=== PATIENT | female | born 1980 | race Two or more races ===

== ENCOUNTER 2025-01-31 11:59 | Emergency (ER) | payer MEDICAID, SELFPAY ==
[2025-01-31 13:11] VITALS: BP 119/83; PULSE 56; RESP 16; TEMP 36.6; O2SAT 100
--- NOTE | 2025-01-31 13:20 | XR_ITS ---
Examination: Pelvic ultrasound, transabdominal, complete Technique: Transabdominal ultrasound of the pelvis performed using grayscale imaging Date and time of exam: January 31, 2025 1536 hrs. 1-worse today Findings: 34 absent uterus Suspicious for cervical mass 2.9 x 1.6 x 2.8 cm Right ovary 3.6 cm arterial flow small follicles, the largest 20 mm Left ovary 2.8 cm arterial flow small follicles, including 21 mm cyst versus dilated left ovarian tube Impression: Suspicious for mass in the cervix 2.9 x 1.6 x 2.8 cm, recommend MRI pelvis follow-up pre and postcontrast
--- NOTE | 2025-01-31 13:20 | XR_ITS ---
Examination: Abdomen sonogram, complete Date and time of exam: January 31, 2025 1515 hrs. Indication: Worsening abdominal pain today. Technique: Multiple real-time grayscale transabdominal sonographic images of the abdomen have been obtained. Findings: Normal gallbladder. Normal common bile duct 0.3 cm. Pancreatic head 2.2 cm Aorta not enlarged. Liver normal size smooth contour Normal hepatopedal portal venous flow. Patent IVC. Right kidney 10.9 renal cortex 1.2 cm Left kidney 11.6 cm renal cortex 1.9 cm Mild bilateral renal parenchymal scar formation Spleen 10.1 cm Impression: Normal gallbladder Liver normal size no focal liver lesions Mild bilateral renal parenchymal scar formation
--- NOTE | 2025-01-31 13:24 | EDNOTE_ITS ---
ED Abdominal Pain RME/HPI General Chief Complaint: Abdominal Pain Stated complaint: ABD PAIN X SEVERAL WEAKS Time seen by provider: 01/31/25 14:51 Arrival date/time: 01/31/25 11:59 Limitations: no limitations RME / HPI RME / HPI narrative: 44-year-old female presents with a 1 month history of abdominal pain with bloating. It became worse today. She states it is constant in nature with no association to food. She denies nausea or vomiting, diarrhea or constipation, fever or chills. I have greeted and performed a focused initial assessment of this patient. A comprehensive ED assessment and evaluation of the patient, analysis of all test results, and completion of the medical decision making process will be conducted by additional ED providers. Related Data Home Medications ?Medication ?Instructions ?Recorded ?Confirmed hydroxyzine HCl 50 mg tablet 1 tab PO DAILY 05/03/22 0 05/21/24 quetiapine 25 mg tablet 1 tab PO DAILY 05/03/2204/29 Previous Rx's ?Medication ?Instructions ?Recorded ondansetron HCl 4 mg tablet 4 mg PO TID #30 tabs 05/17 dicyclomine 20 mg tablet 20 mg PO BID PRN pain #30 ta bs 10/13/22 dicyclomine 20 mg tablet 20 mg PO TID PRN abdominal p ain 05/24/24 #10 tabs Allergies Allergy/AdvReac Type Severity Reaction Status Date / Time No Known Allergies Allergy Verified 01/31/25 12:01 Review of Systems Review of Systems Systems Reviewed: All systems reviewed, normal except as documented Past Medical History Past Medical History NEUROLOGIC: Positive Neurological Disorders and Migraine; Negative Seizures CARDIAC: Negative Cardiac Disorders, Congestive Heart Failure, Edema or Cellulitis RESPIRATORY: Negative Chronic Obstructive Pulmonary Disease (COPD), Asthma, Pulmonary Fibrosis, Tuberculosis or Sleep Apnea GASTROINTESTINAL: Negative Gastrointestinal Disorders or Hepatitis GENITOURINARY: Negative Genitourinary Disorders or Renal Disease REPRODUCTIVE: Positive Previous Pregnancies MUSCULOSKELETAL: Negative Musculoskeletal Disorders ENDOCRINE: Negative Endocrine Disorders, Diabetes Mellitus Type 1 or Diabetes Mellitus Type 2 HEMATOLOGIC: Negative Blood Disorders or Sickle Cell Disease PSYCHO/SOCIAL: Positive Depression and Anxiety OTHER HISTORY: Positive Chicken Pox, Measles and Mumps; Negative Hospitalization, Autoimmune Disease, Shingles, Falls, Blood Transfusions, Blood Transfusion Reaction, Anesthesia Reactions, Chemotherapy, Radiation Therapy, MRSA or Cancer Family History FAMILY HISTORY: Positive Family Psychiatric Problems, Family Cancer (PT'S GRANDPA BRAIN CANCER) and Family Surgery; Negative Family Respiratory Disorders, Family Cardiac Disorders, Family Gastrointestinal Problems or Family Anesthesia Reaction Surgical History SURGICAL: Positive Lumpectomy; Negative Pacemaker Social History SMOKING STATUS: Never smoker ED Exam General Limitations: Present no limitations General appearance: Present alert Head Head exam: Present atraumatic and normal inspection Eye Eye exam: Present normal appearance; Absent scleral icterus or conjunctival injection ENT ENT exam: Present normal exam Neck Neck exam: Present normal inspection Chest Chest inspection: Present normal inspection Respiratory Respiratory exam: Absent respiratory distress Cardiovascular Cardiovascular exam: Present regular rate and normal rhythm Abdominal Exam Abdominal exam: Present soft and tenderness (R&L pelvic region); Absent distention Extremities Exam Extremities exam: Present normal inspection Back Exam Back exam: Present full ROM Neurological Exam Neurological exam: Present alert and oriented X3 Psychiatric Psychiatric exam: Present normal affect and normal mood Skin Skin exam: Present warm, dry, intact and normal color Course Course Course Narrative: 44-year-old female presents with a 1 month history of abdominal pain with bloating. It became worse today. She states it is constant in nature with no association to food. She denies nausea or vomiting, diarrhea or constipation, fever or chills. Alert and oriented, no acute distress, lungs are clear, regular rate and rhythm. Abdomen is soft with mild right and left pelvic tenderness. No rebound or guarding. Labs reveal normal white count, normal H&H and platelets. Comprehensive metabolic panel is normal. Urinalysis is negative for infection or blood. Pelvic US: Findings: absent uterus. Suspicious for cervical mass 2.9 x 1.6 x 2.8 cm. Right ovary 3.6 cm arterial flow small follicles, the largest 20 mm. Left ovary 2.8 cm arterial flow small follicles, including 21 mm cyst versus dilated left ovarian tube. Impression: Suspicious for mass in the cervix 2.9 x 1.6 x 2.8 cm, recommend MRI pelvis follow-up pre and postcontrast Abdominal US: Impression: Normal gallbladder. Liver normal size no focal liver lesions. Mild bilateral renal parenchymal scar formation. Quality Measures none Orders Category Date Time Status NPO STAT Care 01/31/25 13:19 Completed US abdomen Stat Exams 01/31/25 13:20 Completed US pelvic complete Stat Exams 01/31/25 13:20 Completed Amylase Stat Lab 01/31/25 14:20 Completed CBC Stat Lab 01/31/25 14:20 Completed Comprehensive Metabolic Panel Stat Lab 01/31/25 14:20 Completed HCG Qualitative,Urine Stat Lab 01/31/25 13:25 Completed Lipase Stat Lab 01/31/25 14:20 Completed Urinalysis Stat Lab 01/31/25 13:25 Completed Vital Signs Vital signs: Vital Signs Temperature 97.9 F 01/31/25 13:11 Pulse Rate 56 L 01/31/25 13:11 Respiratory Rate 16 01/31/25 13:11 Blood Pressure 119/83 01/31/25 13:11 Pulse Oximetry (%) 100 01/31/25 13:11 Oxygen Delivery Method Room Air 01/31/25 13:11 Abdominal Pain MDM MDM Narrative MDM Narrative:: 44-year-old female presents with a 1 month history of abdominal pain with bloating. It became worse today. She states it is constant in nature with no association to food. She denies nausea or vomiting, diarrhea or constipation, fever or chills. Alert and oriented, no acute distress, lungs are clear, regular rate and rhythm. Abdomen is soft with mild right and left pelvic tenderness. No rebound or guarding. Labs reveal normal white count, normal H&H and platelets. Comprehensive metabol ic panel is normal. Urinalysis is negative for infection or blood. Pelvic US: Findings: absent uterus. Suspicious for cervical mass 2.9 x 1.6 x 2.8 cm. Right ovary 3.6 cm arterial flow small follicles, the largest 20 mm. Left ovary 2.8 cm arterial flow small follicles, including 21 mm cyst versus dilated left ovarian tube. Impression: Suspicious for mass in the cervix 2.9 x 1.6 x 2.8 cm, recommend MRI pelvis follow-up pre and postcontrast Abdominal US: Impression: Normal gallbladder. Liver normal size no focal liver lesions. Mild bilateral renal parenchymal scar formation. Patient data External records reviewed:: None Clinical information provided by:: patient Social determinants that could affect healthcare access:: none Patient has the following chronic illnesses:: N/A How is presenting disease/condition affected by chronic disease/condition?: no chronic disease Evaluation data The following diagnostics were reviewed and interpreted by me:: lab results and radiology exam(s) Lab and/or radiology exams considered but not ordered:: N/A Interpretation Summary: Labs reveal normal white count, normal H&H and platelets. Comprehensive metabolic panel is normal. Urinalysis is negative for infection or blood. Pelvic US: Findings: absent uterus. Suspicious for cervical mass 2.9 x 1.6 x 2.8 cm. Right ovary 3.6 cm arterial flow small follicles, the largest 20 mm. Left ovary 2.8 cm arterial flow small follicles, including 21 mm cyst versus dilated left ovarian tube. Impression: Suspicious for mass in the cervix 2.9 x 1.6 x 2.8 cm, recommend MRI pelvis follow-up pre and postcontrast Abdominal US: Impression: Normal gallbladder. Liver normal size no focal liver lesions. Mild bilateral renal parenchymal scar formation. Medications / Prescriptions Medications or Prescriptions considered but not ordered:: N/A Medication administrations:: N/A Consultations Consultation(s) initiated? (list below): Yes Consultation #1 (Physician, Specialty, Details): Dr. Lui, [employer] [facility] at [facility]. Results of ultrasound discussed with Dr. Lui. She will order MRI. She has agreed to see the patient in the clinic. Diagnosis Differential diagnosis abdominal pain: abdominal pain, endometriosis and other (Cervical mass, ovarian mass, appendicitis, cystitis.) Most likely diagnosis given after review of the tests above:: Cervical mass Admission Indicated Admission indicated?: not indicated Explain why admission is indicated or not indicated:: Patient is stable for discharge Admission Request Was there a request for admission?: No Disposition Plan Disposition Plan: Discharge Discharge Attestation Discharge Attestation: The patient and all family members were given an opportunity to ask questions and understood the discharge instructions. Discharge instructions specifically effects, indications for sooner follow up or return to the emergency department, and the expected course of current diagnosis. Patient condition: Stable Discharge Plan Plan Patient Disposition: HOME (Self Care) Discharge Disposition comment: Stable Prescriptions/Referrals Prescriptions/Med Rec: No Action quetiapine 25 mg tablet 1 tab PO DAILY hydroxyzine HCl 50 mg tablet 1 tab PO DAILY Patient Comments: TOME ROHAN TABLETA POR V A ORAL TODOS LOS D CUANDO SEA NECESARIO ondansetron HCl 4 mg tablet 4 mg PO TID Qty: 30 0RF dicyclomine 20 mg tablet 20 mg PO BID PRN (Reason: pain) Qty: 30 0RF dicyclomine 20 mg tablet 20 mg PO TID PRN (Reason: abdominal pain) Qty: 10 0RF Referrals: Earle Oliveros MD [Primary Care Provider] - In 1 week Soumya Lui MD [Physician] - In 1 week Problem List Clinical Impression: Cervical mass Patient/Caregiver Discharge Instructions Additional Instructions: Follow-up with your primary care physician in 24 to 48 hours. Return to the ED for any new or worsening symptoms. Print Language: Kazakh Stand Alone Forms: Tami Award Info., Patient Portal Info Letter PA/[employer]OV[employer] W[employer]ER Supervising Physician PA/[employer] WINDER Supervising Physician: Dr. Zepeda
[2025-01-31 14:29] LABS: Collection Type, Urine Clean Catch
[2025-01-31 14:30] LABS: Basophils # (Auto) 0.1 Thou/mm3 (0.0-0.2); Basophils % (Auto) 1 % (0-2.5); Eosinophils # (Auto) 0.2 Thou/mm3 (0.0-0.5); Eosinophils % (Auto) 3 % (0-10); Hematocrit 39.1 % (36.0-46.0); Hemoglobin 13.5 g/dL (12.0-16.0); Immature Granulocytes % (Auto) 0 % (0-0); Immature Granulocytes Auto 0.02 Thou/mm3 (0.00-0.00); Lymphocytes # (Auto) 2.6 Thou/mm3 (1.0-4.8); Lymphocytes % (Auto) 36 % (10-50); Mean Corpuscular HGB Conc 34.5 g/dl (31.0-37.0); Mean Corpuscular Hemoglobin 31.4 pg (25.0-35.0); Mean Corpuscular Volume 91 fL (80-100); Monocytes # (Auto) 0.4 Thou/mm3 (0.0-0.8); Monocytes % (Auto) 6 % (0-12); Neutrophils % (Auto) 55 % (37-80); Nucleated Red Blood Cell % 0 /100 WBC (0); Platelet Count 327 Thou/mm3 (140-440); RDW Standard Deviation 43.4 fL (36.4-46.3); White Blood Count 7.3 Thou/mm3 (3.6-11.0)
[2025-01-31 14:35] LABS: Bilirubin,Urine Negative (Negative); Blood,Urine Negative (Negative); Clarity,Urine Clear (Clear/Hazy); Color,Urine Colorless (Lt Yel-Yel); Glucose, Urine Negative (Negative); Ketones,Urine Negative (Negative); Leukocyte Esterase,Urine Negative (Negative); Nitrite,Urine Negative (Negative); PH,Urine 6.5 (5.0-7.0); Protein,Urine Negative (Neg - Trace); RBC,Urine 2 /hpf (0-3); Specific Gravity,Urine 1.009 (1.001-1.035); Squamous Epithelial Cell,Urine < 1 /hpf (0-5); Urobilinogen,Urine Negative mg/dL (0.0-1.0); WBC,Urine < 1 /hpf (0-5)
[2025-01-31 14:37] LABS: HCG Qualitative,Urine Negative
[2025-01-31 14:48] LABS: Alanine Aminotransferase 13 U/L (10-49); Albumin, Serum 4.2 gm/dL (3.5-5.0); Albumin/Globulin Ratio 1.5 (1.2-2.2); Alkaline Phosphatase 75 U/L (46-116); Amylase 105 U/L (30-118); Anion Gap 8 (7-16); Aspartate Amino Transferase 18 U/L (0-34); BUN/Creatinine Ratio 24 Ratio (12-20); Bilirubin,Total 0.7 mg/dL (0.3-1.2); Blood Urea Nitrogen 17 mg/dL (9-23); Calcium 9.1 mg/dL (8.3-10.6); Calcium (Corrected) 9.1 mg/dL (8.5-10.1); Carbon Dioxide 29.5 mMol/L (20.0-31.0); Chloride 104 mMol/L (98-107); Creatinine (Component) 0.7 mg/dL (0.6-1.3); Globulin 2.8 gm/dL (2.3-3.5); Glucose 95 mg/dL (74-106); Lipase 28 U/L (12-53); Osmolality,Calculated 282 (275-295); Potassium 4.2 mMol/L (3.4-5.1); Sodium 141 mMol/L (136-145); eGFR > 60 See Note
[2025-01-31 17:31] VITALS: BP 116/77; PULSE 55; RESP 15; TEMP 36.7; O2SAT 100; BMI 30.4
[2025-01-31 18:12] VITALS: BP 110/73; PULSE 61; RESP 16; TEMP 36.7; O2SAT 100
[2025-01-31 18:30] VITALS: BP 110/73; PULSE 64; RESP 18; O2SAT 100
[2025-01-31 18:31] VITALS: BP 110/73; PULSE 64; RESP 18; O2SAT 100
[2025-01-31 18:32] VITALS: BP 110/73; PULSE 64; RESP 18; O2SAT 100
== END 2025-01-31 18:31 | disposition home or self-care (01) ==
PROVIDERS: Physician Assistant; Emergency Provider Emergency Medicine; PCP Family Medicine
DX: N88.8 Other specified noninflammatory disorders of cervix uteri (principal); N28.89 Other specified disorders of kidney and ureter
CPT/HCPCS: 36415; 76700; 76856; 80053; 81001; 81025; 82150; 83690; 85025; 99284

== ENCOUNTER → 2025-02-25 | Outpatient (CLI) | payer MEDICAID, SELFPAY ==
--- NOTE | 2025-02-25 12:00 | XR_ITS ---
Examination: MRI pelvis with intravenous contrast. MRI pelvis without intravenous contrast. Date and time of exam: February 25, 2025 1251 hours INDICATIONS: Diagnosis other specified on inflammatory disorders of the cervix intermittent pelvic pain 6 months, 2.9 cm cervical mass on pelvic sonogram January 31, 2025 Technique: Multiple axial, sagittal and coronal sections of the pelvis obtained. Transverse images, TR 6020, TE 107. T1 weighted transverse images, TR 582, TE 9.5. T2-weighted sagittal images, TR 4000, TE 105. T2-weighted sagittal images, TR 4000, TE 5. Coronal images, TR 4210, TE 107. Axial and coronal images are obtained post 14 cc intravenous injection, gadolinium. Findings: Status post hysterectomy No definite cervical mass is confirmed on this study No adnexal mass No pelvic lymphadenopathy Normal marrow signal IMPRESSION: No definite cervical mass Recommend this patient return for transvaginal pelvic sonography follow-up
== END | disposition home or self-care (01) ==
LOC: SMRI 11:29
PROVIDERS: PCP Student in an Organized Health Care Education/Training Program
DX: N88.8 Other specified noninflammatory disorders of cervix uteri (principal)
CPT/HCPCS: 72197; A9579